=== PATIENT | female | born 1950 | race Caucasian/White ===

== ENCOUNTER → 2016-08-09 | Outpatient (CLI) | payer BC ==
[~2016-08-09] MED LIST: ACET-1256 PO; CETI10TA10 PO; CHOL20007 PO; DOXY-300 PO; DOXY100T17 PO; DXY100 PO; MULTTAB58 PO; SELE200T2 PO
== END | disposition home or self-care (01) ==
LOC: C.PAPS 16:21
PROVIDERS: ATTEND Obstetrics & Gynecology
DX: Z01.419 Encounter for gynecological examination (general) (routine) without abnormal findings (principal); R87.616 Satisfactory cervical smear but lacking transformation zone

== ENCOUNTER 2016-08-31 07:21 | Emergency (ER) | payer BC ==
[~2016-08-31] VITALS: Ht 167.6 cm; Wt 82.8 kg
[2016-08-31 07:30] VITALS: Ht 167.6 cm; Wt 82.8 kg
[2016-08-31] MEDS ORDERED: ACETAMINOPHEN IV 1,000 MG in EMPTY BAG 0 ML IV STA (07:53)
[2016-08-31] MEDS ORDERED: SODIUM CHLORIDE 0.9% 1000ML 1,000 ML IV STA ×2 (07:53→09:40)
[2016-08-31] MEDS ORDERED: ONDANSETRON INJ 2 MG/ML 2 ML VIAL IV STA (07:53)
--- NOTE | 2016-08-31 08:04 | EMERGENCY ROOM VISIT NOTE ---
History First contact with patient: 07:42 Chief Complaint: FEVER Stated Complaint: FEVER 100-102.5 X 5DAYS,STIFF NECK,SEVERE HEADACHE History of Present Illness The patient is a 65 year old female who presents to the Emergency Room with complaints of fever, neck stiffness and headache. The patient states that 4 days ago she began to develop neck stiffness on the left side of her neck. She states that on Sunday she developed a fever. Her temperature was as high as 102.5F yesterday. She took Tylenol yesterday. She had one episode of emesis today. She reports diffuse arthralgias and myalgias. She rates her discomfort a 5/10. The patient reports having a mosquito bite to the right side of her face a few weeks ago that became very swollen. The patient states that she has also been back and forth to a hospital in [place] as her just had a liver transplant. She denies any earache, sore throat, cough. She denies any pain in her chest or trouble breathing. She denies any abdominal pain or vomiting. She denies any urinary symptoms. She was seen at [facility] yesterday and they thought she may have a viral illness. Review of Systems A 10 system review of systems was completed with positives and pertinent negatives listed in the HPI. Past Medical/Surgical History Patient denies Social History Smoking Status: Never Smoker Housing Status: lives with family Current/Historical Medications Scheduled Cholecalciferol (Vitamin D3), 2,000 INTER.UNIT PO DAILY Doxycycline (Monohydrate) (Doxycycline Monohydrate), 100 MG PO BID Multiple Vitamin (Multivitamin), 1 TAB PO DAILY Selenium (Selenimin-200), 200 MCG PO DAILY Allergies Coded Allergies: Erythromycin (Unverified Allergy, Unknown, rash, 08/31/16) Physical Exam Vital Signs Date Time Temp Pulse Resp B/P (MAP) Pulse Ox O2 Delivery O2 Flow Rate FiO2 08/31/16 13:22 37.0 88 20 106/71 95 08/31/16 11:41 37.2 85 16 132/70 94 Room Air 08/31/16 10:15 37.7 85 20 148/84 94 Room Air 08/31/16 09:22 91 16 125/78 94 Room Air 08/31/16 08:44 39.4 94 22 148/83 93 Room Air 08/31/16 07:30 38.6 112 18 121/68 94 Room Air Physical Exam VITALS: Vitals are noted on the nurse's note and reviewed by myself. The patient is febrile with a temperature of 38.6C. GENERAL: This is a 65-year-old female, in no acute distress, nondiaphoretic, well-developed well-nourished. SKIN: The skin was warm without rashes, erythema, edema, or bruising. There is no tenting of the skin. Capillary reflex less than 2 seconds. HEAD: Normocephalic atraumatic. EARS: External auditory canals clear, tympanic membranes pearly raza without erythema or effusion bilaterally. EYES: Pupils equal round and reactive to light and accommodation. Conjunctivae without injection, sclerae without icterus. Extraocular movements intact. NOSE: Patent, turbinates without inflammation or discharge. No sinus tenderness. MOUTH: Mucous membranes moist. Tonsils are not enlarged. Pharynx without erythema or exudate. Uvula midline. Airway patent. Tongue does not deviate. NECK: There is pain with flexion and extension of the neck. There is tenderness to palpation of the left side of the neck. There is minimal rigidity on exam. No lymphadenopathy. No thyromegaly. Cervical spine is nontender. No JVD. HEART: Regular rate and rhythm without murmurs gallops or rubs. LUNGS: Clear to auscultation bilaterally without wheezes, rales or rhonchi. No retractions or accessory muscle use. ABDOMEN: Positive bowel sounds x 4. Soft, nontender, without masses or organomegaly. Pino sign negative. MUSCULOSKELETAL: No muscle atrophy, erythema, or edema noted. Full range of motion in all extremities.. Normal gait. Strength 5/5 throughout. NEURO: Patient was alert and oriented to person place and time. No focal neurological deficits. Medical Decision & Procedures ER Provider Diagnostic Interpretation: CHEST ONE VIEW PORTABLE CLINICAL HISTORY: fever STIFF NECK COMPARISON STUDY: No previous studies for comparison. FINDINGS: The cardiac and mediastinal contours are normal. There is no evidence of focal pulmonary consolidation. There is no evidence of failure. No pleural effusions are visualized.[ A small linear opacity at the left lung base is felt to be atelectatic. IMPRESSION: No active disease in the chest. [~ rep ct add3]] CT HEAD WITHOUT CONTRAST (CT) CLINICAL HISTORY: fever, neck pain, headache COMPARISON STUDY: No previous studies for comparison. TECHNIQUE: Axial CT of the brain is performed from the vertex to the skull base. IV contrast was not administered for this examination. CT DOSE: 537.48 mGy.cm FINDINGS: No intra or extra-axial mass lesions are visualized. There is no CT evidence of acute cortical infarction. There is no evidence of midline shift. There is no acute hemorrhage. No calvarial fractures are visualized. There is no evidence of pathologic ventricular dilatation. There is a tiny sphenoid sinus air-fluid level. IMPRESSION: Tiny sphenoid sinus air-fluid level. Otherwise unremarkable noncontrast head CT for age. Laboratory Results 08/31/16 08:00 Red Blood Count 5.20, Mean Corpuscular Volume 91.2, Mean Corpuscular Hemoglobin 30.6, Mean Corpuscular Hemoglobin Concent 33.5, Mean Platelet Volume 9.4, Neutrophils (%) (Auto) 85.1, Lymphocytes (%) (Auto) 9.2, Monocytes (%) (Auto) 5.1, Eosinophils (%) (Auto) 0.0, Basophils (%) (Auto) 0.3, Neutrophils # (Auto) 5.48, Lymphocytes # (Auto) 0.59, Monocytes # (Auto) 0.33, Eosinophils # (Auto) 0.00, Basophils # (Auto) 0.02 08/31/16 08:00 Test 08/31/16 08:00 08/31/16 08:09 08/31/16 09:18 White Blood Count 6.44 K/uL (4.8-10.8) Red Blood Count 5.20 M/uL (4.2-5.4) Hemoglobin 15.9 g/dL (12.0-16.0) Hematocrit 47.4 % (37-47) Mean Corpuscular Volume 91.2 fL (80-100) Mean Corpuscular Hemoglobin 30.6 pg (25-34) Mean Corpuscular Hemoglobin Concent 33.5 g/dl (32-36) Platelet Count 148 K/uL (130-400) Mean Platelet Volume 9.4 fL (7.4-10.4) Neutrophils (%) (Auto) 85.1 % Lymphocytes (%) (Auto) 9.2 % Monocytes (%) (Auto) 5.1 % Eosinophils (%) (Auto) 0.0 % Basophils (%) (Auto) 0.3 % Neutrophils # (Auto) 5.48 K/uL (1.4-6.5) Lymphocytes # (Auto) 0.59 K/uL (1.2-3.4) Monocytes # (Auto) 0.33 K/uL (0.11-0.59) Eosinophils # (Auto) 0.00 K/uL (0-0.5) Basophils # (Auto) 0.02 K/uL (0-0.2) RDW Standard Deviation 48.0 fL (36.4-46.3) RDW Coefficient of Variation 14.1 % (11.5-14.5) Immature Granulocyte % (Auto) 0.3 % Immature Granulocyte # (Auto) 0.02 K/uL (0.00-0.02) Prothrombin Time 11.6 SECONDS (9.0-12.0) Prothromb Time International Ratio 1.1 (0.9-1.1) Activated Partial Thromboplast Time 32.2 SECONDS (21.0-31.0) Partial Thromboplastin Ratio 1.2 Anion Gap 12.0 mmol/L (3-11) Est Creatinine Clear Calc Drug Dose 68.6 ml/min Estimated GFR () 77.8 Estimated GFR (Non- 67.1 BUN/Creatinine Ratio 9.8 (10-20) Calcium Level 8.8 mg/dl (8.5-10.1) Total Bilirubin 1.0 mg/dl (0.2-1) Aspartate Amino Transf (AST/SGOT) 46 U/L (15-37) Alanine Aminotransferase (ALT/SGPT) 52 U/L (12-78) Alkaline Phosphatase 102 U/L (45-117) Total Protein 7.6 gm/dl (6.4-8.2) Albumin 3.7 gm/dl (3.4-5.0) Globulin 3.9 gm/dl (2.5-4.0) Albumin/Globulin Ratio 0.9 (0.9-2) Lyme Disease IgG Antibody NEG (NEG) Bedside Lactic Acid Venous 1.18 mmol/L (0.90-1.70) CSF Color PINK CSF Appearance HAZY CSF WBC 3 /uL (0-5) CSF RBC 750 /uL (0) CSF Xanthrochromic NO XANTHOCHROMIA CSF Cell Count Tube # 1 CSF Chemistry Tube # 2 CSF Glucose 70 mg/dl (40-70) CSF Total Protein 45.0 mg/dl (15.0-45.0) Medications Administered Medications (Trade) Dose Ordered Sig/Aletha Route Start Time Stop Time Status Last Admin Dose Admin Sodium Chloride 1,000 ml @ 999 mls/hr Q1H1M STAT IV 08/31/16 07:53 08/31/16 08:53 DC 08/31/16 08:03 999 MLS/HR Ondansetron HCl (Zofran Inj) 4 mg NOW STAT IV 08/31/16 07:53 08/31/16 07:58 DC 08/31/16 08:16 4 MG Acetaminophen (Ofirmev Iv) 1,000 mg STK-MED ONCE IV 08/31/16 08:14 08/31/16 08:15 DC 08/31/16 08:22 1,000 MG Magnesium Sulfate (Magnesium Sulfate) 1 gm NOW STAT IV 08/31/16 09:40 08/31/16 09:41 DC 08/31/16 10:13 1 GM Sodium Chloride 1,000 ml @ 999 mls/hr Q1H1M STAT IV 08/31/16 09:40 08/31/16 10:40 DC 08/31/16 10:12 999 MLS/HR Ketorolac Tromethamine (Toradol Inj) 30 mg NOW STAT IV 08/31/16 10:34 08/31/16 10:35 DC 08/31/16 10:49 30 MG Ceftriaxone Sodium 2000 mg/ Dextrose 70 ml @ 140 mls/hr 1215 ONCE IV 08/31/16 12:15 08/31/16 12:44 DC 08/31/16 12:26 140 MLS/HR Procedure The patient was monitored on a parts expediter. They maintained a normal sinus rhythm without ectopy. A lumbar puncture was performed under the direct supervision of Dr. Carbajal. Risks, benefits and alternatives were discussed with the patient. She signed a consent to proceed with lumbar puncture. The patient was properly positioned and landmarks were identified. The patient's back was prepped in a sterile fashion. Anesthesia was obtained using 1% lidocaine. I did make one attempt but was unsuccessful. Dr. Carbajal was able to retry at a higher level with success. Estimated blood loss was less than 2 mL. A Band-Aid was placed. The patient tolerated the procedure well. ED Course The patient was seen and examined. Previous visits were reviewed. The patient was febrile. She did not have a leukocytosis or anemia. She does not have any significant electrolyte abnormality. Lactic acid was 1.18. AST was minimally elevated at 46. ALT was within normal limits. The patient does admit to drinking alcohol frequently. INR was 1.1. Serum Lyme titer IgM was positive. IgG was negative. Westergren block is pending. CSF cultures were negative for white blood cells, elevated glucose were elevated protein. Blood cultures, CSF for West Nile and CSF or Lyme disease are pending at this time. CT of the brain reveals a tiny sphenoid sinus air-fluid level but otherwise is unremarkable Chest x-ray does not reveal any obvious infiltrate The patient was hydrated with normal saline She was given 4 mg IV Zofran She was given 1 g IV Tylenol with improvement in her temperature She was given 1 g IV magnesium She was given 30 mg IV Toradol with improvement in her headache she was also given 2 g IV Rocephin The patient presents to the emergency department with headache, neck pain, neck stiffness, fever, arthralgias and myalgias. She reports a recent insect bite to the right side of her jaw which became very inflamed and itchy. Given the patient's presentation, a lumbar puncture was obtained as above. The lumbar puncture was negative for meningitis. 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 It is less likely that this truly represents neuro Lyme. She also has trace fluid in the sphenoid sinus. She will be started on doxycycline every 12 hours for 10 days to initiate treatment for Lyme disease while we wait for the Western blot and CSF Lyme disease. We will also be treating for potential sinusitis. The patient was advised to contact the emergency department in approximately 5-7 days to check on the results of the Western blot and if positive she will need an additional prescription for doxycycline. The patient should return to the emergency Department with any worsening symptoms. The patient was also seen and examined by Dr. Carbajal who agrees with the assessment and treatment plan. Medical Decision The differential diagnosis includes viral illness, meningitis, influenza, sinusitis, pneumonia, among others Impression Primary Impression: Fever Additional Impression: Headache Departure Information Dispostion Home / Self-Care Condition GOOD Prescriptions Doxycycline (Monohydrate) (DOXYCYCLINE MONOHYDRATE) 100 Mg Tab 100 MG PO BID for 10 Days, #20 CAP Prov: Hanna Godoy PA-C 08/31/16 Referrals Pro,Alexandr Loyola M.D. (PCP) Forms HOME CARE DOCUMENTATION FORM, IMPORTANT VISIT INFORMATION, Work Instructions Return To Work: 3 days Patient Instructions ED Fever Control, [facility] Additional Instructions Motrin 600mg every 6-8 hours Tylenol 1g every 4-6 hours; no more than 3 grams of tylenol in 24 hours Doxycycline every 12 hours for 10 days. Start tomorrow. You will need an additional 11-18 day course if the Lyme Western Blot comes back positive. You may contact the ED directly [phone] to check on the results. West Nile, Lyme CSF and blood cultures are still pending Return with any worsening symptoms Problem Qualifiers Primary Impression: Fever
[2016-08-31] MEDS ORDERED: ACETAMINOPHEN 1000 MG/100 ML IV IV ONE (08:14)
[2016-08-31 08:20] LABS: BASO % 0.3 %; BASO ABS # 0.02 K/uL (0-0.2); COMPLETE YES; HEMATOCRIT 47.4 % (37-47); IG% 0.3 %; LYMPH % 9.2 %; LYMPH ABS # 0.59 K/uL (1.2-3.4); MEAN CELL VOLUME 91.2 fL (80-100); MEAN CORPUSCULAR HEMOGLOBIN 30.6 pg (25-34); MEAN CORPUSCULAR HGB CONC 33.5 g/dl (32-36); MEAN PLATELET VOLUME 9.4 fL (7.4-10.4); MONO % 5.1 %; NEUT % 85.1 %; PLATELET COUNT 148 K/uL (130-400); WHITE BLOOD COUNT 6.44 K/uL (4.8-10.8)
[2016-08-31 08:28] LABS: INR 1.1 (0.9-1.1); PARTIAL THROMBOPLASTIN RATIO 1.2; PROTHROMBIN TIME (PATIENT) 11.6 SECONDS (9.0-12.0)
[2016-08-31 08:33] LABS: CALCIUM 8.8 mg/dl (8.5-10.1)
[2016-08-31 08:34] LABS: BUN/CREATININE RATIO 9.8 (10-20); CREATININE 0.91 mg/dl (0.60-1.20); POTASSIUM 3.8 mmol/L (3.5-5.1)
[2016-08-31 08:36] LABS: ALB/GLOB RATIO 0.9 (0.9-2)
--- NOTE | 2016-08-31 08:36 | DIAGNOSTIC IMAGING REPORT ---
CHEST ONE VIEW PORTABLE CLINICAL HISTORY: fever STIFF NECK COMPARISON STUDY: No previous studies for comparison. FINDINGS: The cardiac and mediastinal contours are normal. There is no evidence of focal pulmonary consolidation. There is no evidence of failure. No pleural effusions are visualized.[ A small linear opacity at the left lung base is felt to be atelectatic. IMPRESSION: No active disease in the chest. Electronically signed by: Gene Richter M.D. 08/31/2016 8:34 AM Dictated Date/Time: 08/31/2016 8:34 AM
--- NOTE | 2016-08-31 08:43 | DIAGNOSTIC IMAGING REPORT ---
CT HEAD WITHOUT CONTRAST (CT) CLINICAL HISTORY: fever, neck pain, headache COMPARISON STUDY: No previous studies for comparison. TECHNIQUE: Axial CT of the brain is performed from the vertex to the skull base. IV contrast was not administered for this examination. CT DOSE: 537.48 mGy.cm FINDINGS: No intra or extra-axial mass lesions are visualized. There is no CT evidence of acute cortical infarction. There is no evidence of midline shift. There is no acute hemorrhage. No calvarial fractures are visualized. There is no evidence of pathologic ventricular dilatation. There is a tiny sphenoid sinus air-fluid level. IMPRESSION: Tiny sphenoid sinus air-fluid level. Otherwise unremarkable noncontrast head CT for age. Electronically signed by: Gene Richter M.D. 08/31/2016 8:42 AM Dictated Date/Time: 08/31/2016 8:39 AM
[2016-08-31] MEDS ORDERED: MULTTAB58 PO ×2 (08:56)
[2016-08-31] MEDS ORDERED: SELE200T2 PO ×2 (08:56)
[2016-08-31] MEDS ORDERED: CHOL20007 PO ×2 (08:56)
[2016-08-31] MEDS ORDERED: LIDOCAINE HCL 1% 20 ML VIAL ONE (09:12)
[2016-08-31 09:16] LABS: LYME DISEASE AB IGG NEG (NEG)
[2016-08-31 09:18] LABS: LYME DISEASE AB IGM POS (NEG)
[2016-08-31] MEDS ORDERED: MAGNESIUM SULFATE 1GM / D5W 1 GM BAG IV STA (09:40)
[2016-08-31 10:00] LABS: CSF CHEMISTRY TUBE # 2
[2016-08-31] MEDS ORDERED: KETOROLAC TROMETHAMINE 30 MG/ML VIAL IV STA (10:34)
[2016-08-31 10:42] LABS: CSF APPEARANCE HAZY; CSF COLOR PINK; CSF XANTHOCHROMIC NO XANTHOCHROMIA
[2016-08-31] MEDS ORDERED: CEFTRIAXONE SOD INJ 1 GM ADDVIAL IV STA (11:52)
[2016-08-31] MEDS ORDERED: DOXY100T17 PO ×2 (12:03)
[2016-08-31] MEDS ORDERED: CEFTRIAXONE SOD INJ 2000 MG in DEXTROSE 5% 50ML IV ONE (12:15)
[2016-08-31 13:22] VITALS: BP 106/71; PULSE 88; TEMP 37; O2SAT 95
[2016-08-31] MEDS ORDERED: ACET-1256 PO ×2 (19:09)
[2016-09-02] MEDS ORDERED: DOXY-300 PO ×2 (09:55)
[2016-09-05 13:36] LABS: HSV TYPE 1 DNA Not Detected (Not Detected); HSV TYPE 1&2 DNA SOURCE Serum; HSV TYPE 2 DNA Not Detected (Not Detected); LYME DNA PCR CSF OR SYNOVIAL Not detected (Not Detected); LYME DNA SOURCE CSF
[2016-09-05 17:13] LABS: 18KDIGG BAND NONREACTIVE (NONREACTIVE); 23KDIGG BAND NONREACTIVE (NONREACTIVE); 23KDIGM BAND REACTIVE (NONREACTIVE); 28KDIGG BAND NONREACTIVE (NONREACTIVE); 30KDIGG BAND NONREACTIVE (NONREACTIVE); 39KDIGG BAND NONREACTIVE (NONREACTIVE); 39KDIGM BAND NONREACTIVE (NONREACTIVE); 41KDIGG BAND REACTIVE (NONREACTIVE); 41KDIGM BAND NONREACTIVE (NONREACTIVE); 45KDIGG BAND NONREACTIVE (NONREACTIVE); 58KDIGG BAND NONREACTIVE (NONREACTIVE); 66KDIGG BAND NONREACTIVE (NONREACTIVE); 93KDIGG BAND NONREACTIVE (NONREACTIVE)
[2016-12-28] MEDS ORDERED: CETI10TA10 PO (10:40)
== END 2016-08-31 13:23 | disposition home or self-care (01) ==
LOC: C.EDB 07:22
DX: R51 Headache (principal); R50.9 Fever, unspecified; Z79.899 Other long term (current) drug therapy; Z88.3 Allergy status to other anti-infective agents

== ENCOUNTER 2016-08-31 18:11 | Inpatient (IN) | payer BC ==
[~2016-08-31] VITALS: Ht 167.6 cm; Wt 90.0 kg
[~2016-08-31 18:11] MED LIST changes: -ACET-1256 PO; -CETI10TA10 PO; -DOXY-300 PO; -DXY100 PO
[2016-08-31] MEDS ORDERED: SODIUM CHLORIDE 0.9% 1000ML 2,000 ML IV STA (18:52)
[2016-08-31] MEDS ORDERED: KETOROLAC TROMETHAMINE 30 MG/ML VIAL IV STA (18:52)
[2016-08-31] MEDS ORDERED: DOXYCYCLINE IV 100 MG in DEXTROSE 5% 100ML 100 ML IV STA (18:58)
[2016-08-31] MEDS ORDERED: ACET-1256 PO ×2 (19:09)
[2016-08-31 19:34] LABS: BASO % 0.5 %; BASO ABS # 0.03 K/uL (0-0.2); COMPLETE YES; HEMATOCRIT 42.1 % (37-47); IG% 0.2 %; LYMPH % 6.8 %; LYMPH ABS # 0.42 K/uL (1.2-3.4); MEAN CELL VOLUME 90.7 fL (80-100); MEAN CORPUSCULAR HEMOGLOBIN 30.4 pg (25-34); MEAN CORPUSCULAR HGB CONC 33.5 g/dl (32-36); MEAN PLATELET VOLUME 9.4 fL (7.4-10.4); MONO % 4.8 %; NEUT % 87.7 %; PLATELET COUNT 127 K/uL (130-400); RED BLOOD COUNT 4.64 M/uL (4.2-5.4); WHITE BLOOD COUNT 6.21 K/uL (4.8-10.8)
--- NOTE | 2016-08-31 19:44 | EMERGENCY ROOM VISIT NOTE ---
History First contact with patient: 18:45 Chief Complaint: FEVER Stated Complaint: FEVER 103.9 History of Present Illness The patient is a 65 year old female who presents to the Emergency Room with complaints of fever/chills that have been ongoing for the past 5 days. She has had associated severe headaches and neck pain as well. Patient was seen in this emergency department this morning for her symptoms, had a significant workup including labs, urinalysis and urine culture, blood cultures, IV fluid bolus, IV antibiotics, head CT, chest x-ray, and lumbar puncture. She did have a presumptive positive Lyme antibody, which was the suspected cause of her symptoms. She was discharged home with a prescription for doxycycline, however the patient states she did not yet start taking this. Upon arrival home the patient began to have significant chills and spiked a fever to 103.9 with persistent severe headache and body aches. She has also noticed a slight cough since being discharged. This prompted the patient to return to the ER. She denies vision changes, chest pain, shortness of breath, palpitations, abdominal pain, vomiting, diarrhea, urinary symptoms, rash. Review of Systems GENERAL: + Fevers, chills, malaise, body aches. Denies unintentional weight changes. HEENT: Denies dizziness, visual problems, hearing loss, tinnitus. Denies difficulty swallowing or oral lesions. PULMONARY: + Cough. Denies shortness of breath, sputum production or hemoptysis. CARDIOVASCULAR: Denies chest pain, palpitations, dyspnea on exertion, orthopnea or peripheral edema. GASTROINTESTINAL: Denies diarrhea, constipation, nausea, vomiting, or abdominal pain. GENITOURINARY: Denies dysuria, frequency, urgency or nocturia. NEUROLOGIC: + Headache. Denies history of epilepsy, CVA, TIA or chronic headaches. MUSCULOSKELETAL: + Neck pain. Denies history of joint tenderness/swelling. SKIN: Denies rashes or lesions. PSYCHIATRIC: Denies history of depression or mental illness. ENDOCRINE: Denies history of diabetes. 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 Social History Smoking Status: Never Smoker Housing Status: lives with family Current/Historical Medications Scheduled Cholecalciferol (Vitamin D3), 2,000 INTER.UNIT PO DAILY Doxycycline (Monohydrate) (Doxycycline Monohydrate), 100 MG PO BID Multiple Vitamin (Multivitamin), 1 TAB PO DAILY Selenium (Selenimin-200), 200 MCG PO DAILY Scheduled PRN Acetaminophen (Tylenol), 1,000 MG PO UD PRN for Pain or Fever Allergies Coded Allergies: Erythromycin (Unverified Allergy, Unknown, rash, 08/31/16) Physical Exam Vital Signs Date Time Temp Pulse Resp B/P (MAP) Pulse Ox O2 Delivery O2 Flow Rate FiO2 09/01/16 01:06 82 14 113/63 96 08/31/16 23:24 100 16 147/74 99 Nasal Cannula 2.0 08/31/16 22:04 37.4 08/31/16 22:02 92 22 132/71 97 08/31/16 21:41 89 25 98 08/31/16 20:41 88 18 96 08/31/16 20:35 95 08/31/16 20:23 96 Nasal Cannula 2.0 08/31/16 19:33 98 20 123/65 95 08/31/16 19:32 123/65 08/31/16 18:12 38.9 106 19 143/72 92 Room Air Physical Exam CONSTITUTIONAL: No acute distress. Mildly dehydrated. Skin is hot to touch. Nontoxic appearing. Alert and oriented X 4 with normal affect. HEENT: Normocephalic, atraumatic. Pupils equal, round and reactive to light, EOMI. TMs normal. Pharynx normal. Dry mucous membranes. NECK: Supple, full active range of motion without discomfort. Tenderness to the left lateral neck with palpation, no palpable cervical adenopathy. RESPIRATORY: Clear to auscultation bilaterally with no wheezing, crackles, rhonchi or stridor. Equal expansion bilaterally. CARDIOVASCULAR: Regular rate and rhythm with no murmurs, rubs or gallops. Normal peripheral perfusion. No edema. GASTROINTESTINAL: Soft, nontender, nondistended. Bowel sounds present in all quadrants. MUSCULOSKELETAL: Full range of motion of all joints without discomfort. INTEGUMENTARY: No rash or other significant dermatologic conditions noted. NEUROLOGIC: Cranial nerves II-XII grossly intact. No focal neurologic deficits noted. Normal strength, normal sensation, normal coordination, normal gait. Medical Decision & Procedures Laboratory Results 08/31/16 19:15 Red Blood Count 4.64, Mean Corpuscular Volume 90.7, Mean Corpuscular Hemoglobin 30.4, Mean Corpuscular Hemoglobin Concent 33.5, Mean Platelet Volume 9.4, Neutrophils (%) (Auto) 87.7, Lymphocytes (%) (Auto) 6.8, Monocytes (%) (Auto) 4.8, Eosinophils (%) (Auto) 0.0, Basophils (%) (Auto) 0.5, Neutrophils # (Auto) 5.45, Lymphocytes # (Auto) 0.42, Monocytes # (Auto) 0.30, Eosinophils # (Auto) 0.00, Basophils # (Auto) 0.03 08/31/16 19:15 Test 08/31/16 00:00 08/31/16 19:15 08/31/16 19:18 08/31/16 21:20 Influenza Type A Antigen Neg for Influ A (NEG) Influenza Type B Antigen Neg for Influ B (NEG) White Blood Count 6.21 K/uL (4.8-10.8) Red Blood Count 4.64 M/uL (4.2-5.4) Hemoglobin 14.1 g/dL (12.0-16.0) Hematocrit 42.1 % (37-47) Mean Corpuscular Volume 90.7 fL (80-100) Mean Corpuscular Hemoglobin 30.4 pg (25-34) Mean Corpuscular Hemoglobin Concent 33.5 g/dl (32-36) Platelet Count 127 K/uL (130-400) Mean Platelet Volume 9.4 fL (7.4-10.4) Neutrophils (%) (Auto) 87.7 % Lymphocytes (%) (Auto) 6.8 % Monocytes (%) (Auto) 4.8 % Eosinophils (%) (Auto) 0.0 % Basophils (%) (Auto) 0.5 % Neutrophils # (Auto) 5.45 K/uL (1.4-6.5) Lymphocytes # (Auto) 0.42 K/uL (1.2-3.4) Monocytes # (Auto) 0.30 K/uL (0.11-0.59) Eosinophils # (Auto) 0.00 K/uL (0-0.5) Basophils # (Auto) 0.03 K/uL (0-0.2) RDW Standard Deviation 48.6 fL (36.4-46.3) RDW Coefficient of Variation 14.5 % (11.5-14.5) Immature Granulocyte % (Auto) 0.2 % Immature Granulocyte # (Auto) 0.01 K/uL (0.00-0.02) Anion Gap 9.0 mmol/L (3-11) Est Creatinine Clear Calc Drug Dose 80.4 ml/min Estimated GFR () 90.9 Estimated GFR (Non- 78.5 BUN/Creatinine Ratio 14.1 (10-20) Lactic Acid Level 0.8 mmol/L (0.4-2.0) Calcium Level 8.0 mg/dl (8.5-10.1) Total Bilirubin 1.1 mg/dl (0.2-1) Direct Bilirubin 0.6 mg/dl (0-0.2) Aspartate Amino Transf (AST/SGOT) 111 U/L (15-37) Alanine Aminotransferase (ALT/SGPT) 96 U/L (12-78) Alkaline Phosphatase 143 U/L (45-117) Total Protein 6.7 gm/dl (6.4-8.2) Albumin 3.3 gm/dl (3.4-5.0) Urine Color DK YELLOW Urine Appearance CLEAR (CLEAR) Urine pH 6.5 (4.5-7.5) Urine Specific [place] 1.014 (1.000-1.030) Urine Protein NEG (NEG) Urine Glucose (UA) NEG (NEG) Urine Ketones 1+ (NEG) Urine Occult Blood NEG (NEG) Urine Nitrite NEG (NEG) Urine Bilirubin NEG (NEG) Urine Urobilinogen POS (NEG) Urine Leukocyte Esterase NEG (NEG) Medications Administered Medications (Trade) Dose Ordered Sig/Aletha Route Start Time Stop Time Status Last Admin Dose Admin Sodium Chloride 2,000 ml @ 999 mls/hr Q2H1M STAT IV 08/31/16 18:52 08/31/16 20:52 DC 08/31/16 19:32 999 MLS/HR Ketorolac Tromethamine (Toradol Inj) 15 mg NOW STAT IV 08/31/16 18:52 08/31/16 18:56 DC 08/31/16 19:32 15 MG Doxycycline Hyclate 100 mg/ Dextrose 110 ml @ 50 mls/hr NOW STAT IV 08/31/16 18:58 08/31/16 21:09 DC 08/31/16 19:32 50 MLS/HR Butalbital/ Aspirin/Caffeine (Fiorinal Tab/ CAP) 1 tab Q4H PRN PO 08/31/16 22:45 09/30/16 22:44 08/31/16 23:23 1 TAB Ceftriaxone Sodium 2000 mg/ Dextrose 70 ml @ 100 mls/hr NOW STAT IV 08/31/16 23:26 09/01/16 00:07 DC 09/01/16 00:12 100 MLS/HR ECG Indication: weakness Rate (beats per minute): 92 Rhythm: normal sinus Findings: no acute ischemic change, no ectopy Medical Decision CC: Patient presenting with complaint of fever/chills and headache, body aches Interpretation of Labs: No leukocytosis, no anemia, no significant electrolyte abnormalities, normal renal function. Acute elevation of liver enzymes when compared to labs drawn earlier today. Of note, patient also had positive Lyme antibodies drawn today, confirmation pending. Blood cultures and urine cultures also sent today. Influenza A/B negative. Differential Diagnosis: Includes, but not limited to acute Lyme disease, Lyme meningitis, influenza, UTI, dehydration, bacteremia/sepsis Medication Reconciliation: I attest that I have personally reviewed the patient' s current medication list. Vital signs review: I reviewed the patient's vital signs and interpret them as follows: T: Febrile; BP: normotensive; HR: Tachycardic; RR: WNL; Pulse Ox: WNL on RA. Blood pressure screening: The patient was found to have normal blood pressure on screening and does not require follow-up for repeat blood pressure check. Summary: Patient was evaluated at bedside, history of physical exam performed. Patient is alert and oriented and in no acute distress, she is noted to be febrile and tachycardic on vital signs, but is nontoxic appearing. Mildly dehydrated. Neurologic exam is intact with no focal deficits. No nuchal rigidity. She has left-sided neck tenderness to palpation. Review of earlier ED visit today reveals normal head CT, normal chest x-ray, CSF testing that is negative for bacterial meningitis, some CSF specimen still pending. She did have positive Lyme antibodies results today. Orders were placed at bedside for repeat labs and UA, IV fluid bolus, IV doxycycline to evaluate for worsening infection and treat for possible Lyme. Patient discussed with Dr. Holden, who agrees with my assessment and plan. Labs reviewed as above, concerning for acute elevation in LFTs that is changed from earlier today. Patient continues to mount high fevers in spite of multiple doses of antipyretics. Given the patient's poor progress and severe headaches with recurrent high fevers, concern for Lyme meningitis. Patient discussed with Dr. Mcdowell, hospitalist, for admission. He agrees to admission and recommends starting patient on additional IV ceftriaxone and IV steroids. Patient reassessed multiple times throughout ED stay, she remains alert and oriented and generally well-appearing/nontoxic. She is persistently febrile, but tachycardia is improved. Headache is also somewhat improved after medications and also persistent. Patient and family updated on all results and plan for admission, and they are agreeable to admission. Patient stable at time of admission. 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 (PCP) Patient Instructions My [facility] Problem Qualifiers Primary Impression: Fever Fever type: unspecified Qualified Codes: R50.9 - Fever, unspecified
[2016-08-31 19:55] LABS: BUN/CREATININE RATIO 14.1 (10-20); CREATININE 0.8 mg/dl (0.60-1.20); POTASSIUM 3.9 mmol/L (3.5-5.1)
[2016-08-31 21:51] LABS: URINE APPEARANCE CLEAR (CLEAR); URINE COLOR DK YELLOW; URINE NITRITE NEG (NEG); URINE PH 6.5 (4.5-7.5); URINE SPECIFIC GRAVITY 1.014 (1.000-1.030); UROBILINOGEN POS (NEG); ZZUR CULT IF INDIC CLEAN CATCH NO
[2016-08-31 22:01] LABS: MANUAL MICROSCOPIC REQUIRED? NO; REVIEW REQ? NO; URINE BILIRUBIN NEG (NEG)
[2016-08-31] MEDS ORDERED: BUTALBITAL/ASA/CAFFEINE 1 EA TAB/CAP PO PRN (22:45)
[2016-08-31] MEDS ORDERED: CEFTRIAXONE SOD INJ 2,000 MG in DEXTROSE 5% 50ML 50 ML IV SCH (23:15)
[2016-08-31] MEDS ORDERED: CEFTRIAXONE SOD INJ 2,000 MG in DEXTROSE 5% 50ML 50 ML IV STA (23:26)
[2016-09-01] VITALS (10 sets, daily range): BP systolic 115–148; BP diastolic 65–97; PULSE 60–84; TEMP 36.6–37.8; O2SAT 92–97; Ht 167.6 cm; Wt 90.0 kg
[2016-09-01] MEDS ORDERED: MoRPHine SULFATE 4 MG/ML 1 ML CARP\\VIAL IV PRN (00:45)
[2016-09-01] MEDS ORDERED: MoRPHine SULFATE 2 MG/ML CARP IV PRN (00:45)
[2016-09-01] MEDS ORDERED: ONDANSETRON INJ 2 MG/ML 2 ML VIAL IV PRN (00:45)
[2016-09-01] MEDS ORDERED: DEXAMETHASONE SOD INJ 10 MG/ML VIAL IV STA (01:15)
[2016-09-01] MEDS ORDERED: DEXAMETHASONE INJ 10 MG in SYRINGE 0 ML IV STA (01:44)
[2016-09-01] MEDS ORDERED: NSS + 20MEQ KCL 1000ML 1,000 ML IV SCH (02:00)
--- NOTE | 2016-09-01 06:35 | DIAGNOSTIC IMAGING REPORT ---
ABDOMINAL ULTRASOUND, RIGHT UPPER QUADRANT HISTORY: Pain elevated LFTs, fevers, eval cholecystitis. COMPARISON: None. FINDINGS: Pancreas: The pancreas demonstrates a normal echotexture. Liver: Unremarkable. Gallbladder: No gallbladder wall thickening. No gallstones. CBD: 5 mm Right kidney: No hydronephrosis. IMPRESSION: No significant abnormality identified within the within the right upper quadrant. Electronically signed by: Willy Cardoza M.D. 09/01/2016 6:34 AM Dictated Date/Time: 09/01/2016 6:32 AM
--- NOTE | 2016-09-01 07:20 | History and Physical ---
History & Physical Date & Time of Service: Sep 01, 2016 at 07:09. The patient was examined on 08/31/2016. 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 History of Present Illness Source: patient The patient is a 65-year-old female presents emergency department with fevers, chills, severe headaches and neck pain over the past 5 days. She was seen in the emergency department earlier in the morning, had an extensive workup at that time including a positive Lyme IgM test. She'll be given ceftriaxone IV and sent home on doxycycline orally, which she has not filled yet today. Her temperature worsens to 103.9F, was prompted her return to the emergency department tonight for reassessment. She has not had any recent travel, and is not aware of any sick exposures. Social History Smoking Status: Never Smoker Smokeless Tobacco Use: No Alcohol Use: none Drug Use: none Housing status: lives with family Multi-Drug Resistant Organisms History of MDRO: No Allergies Coded Allergies: Erythromycin (Unverified Allergy, Unknown, rash, 08/31/16) Home Medications Scheduled Cholecalciferol (Vitamin D3), 2,000 INTER.UNIT PO DAILY Doxycycline (Monohydrate) (Doxycycline Monohydrate), 100 MG PO BID Multiple Vitamin (Multivitamin), 1 TAB PO DAILY Selenium (Selenimin-200), 200 MCG PO DAILY Scheduled PRN Acetaminophen (Tylenol), 1,000 MG PO UD PRN for Pain or Fever Review of Systems The patient denies chest pain, palpitations, shortness of breath, cough, lower extremity swelling, vision change, hearing change, sore throat, nausea, vomiting , abdominal pain, pelvic pain, blood in urine or stool, dysuria, urinary frequency or urgency, memory loss, rash, abnormal bruising or bleeding, imbalance, focal weakness, numbness or tingling in arms or legs. The review of systems is otherwise negative other than for that already noted above, and at least 10 systems have been reviewed. Physical Exam Vital Signs Date Time Temp Pulse Resp B/P (MAP) Pulse Ox O2 Delivery O2 Flow Rate FiO2 09/01/16 06:17 37.6 09/01/16 04:07 37.8 82 18 128/74 (92) 92 Room Air 09/01/16 04:00 Room Air 09/01/16 01:30 37.8 84 15 126/76 93 Room Air 09/01/16 01:06 82 14 113/63 96 08/31/16 23:24 100 16 147/74 99 Nasal Cannula 2.0 08/31/16 22:04 37.4 08/31/16 22:02 92 22 132/71 97 08/31/16 21:41 89 25 98 08/31/16 20:41 88 18 96 08/31/16 20:35 95 08/31/16 20:23 96 Nasal Cannula 2.0 08/31/16 19:33 98 20 123/65 95 08/31/16 19:32 123/65 08/31/16 18:12 38.9 106 19 143/72 92 Room Air The patient is awake, well-developed and adequately nourished, alert and oriented 3, normocephalic and atraumatic, lying in bed and in mild to moderate distress secondary to headache pain HEENT--PERRL, EOMI, mucous membranes and oropharynx dry. Neck--supple, no JVD or bruits, thyroid normal, trachea midline, no adenopathy. Heart--normal S1 and S2, no extra beats, no murmurs, rubs or gallops. Lungs--clear bilaterally with good air movement, no respiratory distress, no accessory muscle use. Abdomen--normal bowel sounds and soft, nontender and nondistended, no hernias or masses, no organomegaly. Extremities--no cyanosis, clubbing or edema. There are good distal pulses b/l. Dermatologic--normal skin turgor, normal color, warm and dry, no abnormal lymph nodes, no rash. Neurologic--cranial nerves II through XII grossly intact, motor and sensory examination normal. Rheumatologic--normal range of motion. Psychiatric--normal affect. Diagnostics Laboratory Results Results Past 24 Hours Test 08/31/16 19:15 08/31/16 19:18 08/31/16 21:20 09/01/16 05:20 Range/Units White Blood Count 6.21 4.8-10.8 K/uL Red Blood Count 4.64 4.2-5.4 M/uL Hemoglobin 14.1 12.0-16.0 g/dL Hematocrit 42.1 37-47 % Mean Corpuscular Volume 90.7 80-100 fL Mean Corpuscular Hemoglobin 30.4 25-34 pg Mean Corpuscular Hemoglobin Concent 33.5 32-36 g/dl Platelet Count 127 130-400 K/uL Mean Platelet Volume 9.4 7.4-10.4 fL Neutrophils (%) (Auto) 87.7 % Lymphocytes (%) (Auto) 6.8 % Monocytes (%) (Auto) 4.8 % Eosinophils (%) (Auto) 0.0 % Basophils (%) (Auto) 0.5 % Neutrophils # (Auto) 5.45 1.4-6.5 K/uL Lymphocytes # (Auto) 0.42 1.2-3.4 K/uL Monocytes # (Auto) 0.30 0.11-0.59 K/uL Eosinophils # (Auto) 0.00 0-0.5 K/uL Basophils # (Auto) 0.03 0-0.2 K/uL RDW Standard Deviation 48.6 36.4-46.3 fL RDW Coefficient of Variation 14.5 11.5-14.5 % Immature Granulocyte % (Auto) 0.2 % Immature Granulocyte # (Auto) 0.01 0.00-0.02 K/uL Sodium Level 137 136-145 mmol/L Potassium Level 3.9 3.5-5.1 mmol/L Chloride Level 103 98-107 mmol/L Carbon Dioxide Level 25 21-32 mmol/L Anion Gap 9.0 3-11 mmol/L Blood Urea Nitrogen 11 7-18 mg/dl Creatinine 0.80 0.60-1.20 mg/dl Est Creatinine Clear Calc Drug Dose 80.4 ml/min Estimated GFR () 90.9 Estimated GFR (Non- 78.5 BUN/Creatinine Ratio 14.1 10-20 Random Glucose 120 70-99 mg/dl Lactic Acid Level 0.8 0.4-2.0 mmol/L Calcium Level 8.0 8.5-10.1 mg/dl Total Bilirubin 1.1 0.2-1 mg/dl Direct Bilirubin 0.6 0-0.2 mg/dl Aspartate Amino Transf (AST/SGOT) 111 15-37 U/L Alanine Aminotransferase (ALT/SGPT) 96 12-78 U/L Alkaline Phosphatase 143 45-117 U/L Total Protein 6.7 6.4-8.2 gm/dl Albumin 3.3 3.4-5.0 gm/dl Urine Color DK YELLOW Urine Appearance CLEAR CLEAR Urine pH 6.5 4.5-7.5 Urine Specific [place] 1.014 1.000-1.030 Urine Protein NEG NEG Urine Glucose (UA) NEG NEG Urine Ketones 1+ NEG Urine Occult Blood NEG NEG Urine Nitrite NEG NEG Urine Bilirubin NEG NEG Urine Urobilinogen POS NEG Urine Leukocyte Esterase NEG NEG Diagnostic Radiology Patient Name: LILY CASTREJON Unit Number: [id number] Dictated: 09/01/16631 Transcribed: 09/01/16631 MS Printed Date/Time: [~ rep prt dt]/[~ rep prt tm] [~ rep ct labl] - [~ rep ct ivnm] [facility] Radiology Department [place] [id number] Dictated: 09/01/16631 Transcribed: 09/01/16631 MS Printed Date/Time: [~ rep prt dt]/[~ rep prt tm] [~ rep ct labl] - [~ rep ct ivnm] ABDOMINAL ULTRASOUND, RIGHT UPPER QUADRANT HISTORY: Pain elevated LFTs, fevers, eval cholecystitis. COMPARISON: None. FINDINGS: Pancreas: The pancreas demonstrates a normal echotexture. Liver: Unremarkable. Gallbladder: No gallbladder wall thickening. No gallstones. CBD: 5 mm Right kidney: No hydronephrosis. IMPRESSION: No significant abnormality identified within the within the right upper quadrant. Electronically signed by: Willy Cardoza M.D. 09/01/2016 6:34 AM Dictated Date/Time: 09/01/2016 6:32 AM The status of this report is Signed. Draft = Not yet reviewed or approved by Radiologist. Signed = Reviewed and approved by Radiologist. <AttendingPhy>Saulo Mcdowell M.D.</AttendingPhy> <FamilyPhy>Alexandr Barnett M.D.</FamilyPhy> <PrimaryPhy>Alexandr Barnett M.D.</PrimaryPhy> <UnitNumber> [id number]</UnitNumber> <VisitNumber>[id number]</VisitNumber> <PatientName> LILY CASTREJON</PatientName> <DateOfBirth>1950</DateOfBirth> < Location>[facility]</Location> <ServiceDate>08/31/16</ServiceDate> <MNE>ESINDI</MNE> < OrderingPhy>Claudia Lara</OrderingPhy> <OrderingPhyMNE>f rep ord dr wyatt </OrderingPhyMNE> <DictatingPhyMNE>f rep dict dr wyatt</DictatingPhyMNE> < CCListMNE>f rep ct mne</CCListMNE> <AdmittingPhyMNE>f pt admit dr wyatt</ AdmittingPhyMNE> <AttendingPhyMNE>f pt attend dr wyatt</AttendingPhyMNE> <ConsultingPhyMNE>f pt consult dr wyatt</ConsultingPhyMNE> <FamilyPhyMNE>f pt fam dr wyatt</FamilyPhyMNE> <OtherPhyMNE>f pt other dr wyatt</OtherPhyMNE> < PrimaryPhyMNE>f pt prim care dr wyatt</PrimaryPhyMNE> <ReferringPhyMNE>f pt referring dr wyatt</ReferringPhyMNE> Patient Name: LILY CASTREJON Unit Number: [id number] Dictated: 08/31/16833 Transcribed: 08/31/16833 ARG Printed Date/Time: [~ rep prt dt]/[~ rep prt tm] [~ rep ct labl] - [~ rep ct ivnm] [facility] [place] [place] [address] Dictated: 08/31/16833 Transcribed: 08/31/16833 ARG Printed Date/Time: [~ rep prt dt]/[~ rep prt tm] [~ rep ct labl] - [~ rep ct ivnm] [~ rep ct add3]] CHEST ONE VIEW PORTABLE CLINICAL HISTORY: fever STIFF NECK COMPARISON STUDY: No previous studies for comparison. FINDINGS: The cardiac and mediastinal contours are normal. There is no evidence of focal pulmonary consolidation. There is no evidence of failure. No pleural effusions are visualized.[ A small linear opacity at the left lung base is felt to be atelectatic. IMPRESSION: No active disease in the chest. Electronically signed by: Gene Richter M.D. 08/31/2016 8:34 AM Dictated Date/Time: 08/31/2016 8:34 AM The status of this report is Signed. Draft = Not yet reviewed or approved by Radiologist. Signed = Reviewed and approved by Radiologist. <AttendingPhy></AttendingPhy> <FamilyPhy>Alexandr Barnett M.D.</FamilyPhy> < PrimaryPhy>Alexandr Barnett M.D.</PrimaryPhy> <UnitNumber>[id number]</UnitNumber > <VisitNumber>[id number]</VisitNumber> <PatientName>LILY CASTREJON</ PatientName> <DateOfBirth>1950</DateOfBirth> <Location>C[facility]</Location> < ServiceDate>08/31/16</ServiceDate> <MNE>ESINDI</MNE> <OrderingPhy>Hanna Godoy PA-C</OrderingPhy> <OrderingPhyMNE>f rep ord dr wyatt</OrderingPhyMNE > <DictatingPhyMNE>f rep dict dr wyatt</DictatingPhyMNE> <CCListMNE>f rep ct mne</ CCListMNE> <AdmittingPhyMNE>f pt admit dr wyatt</AdmittingPhyMNE> <AttendingPhyMNE >f pt attend dr wyatt</AttendingPhyMNE> <ConsultingPhyMNE>f pt consult dr wyatt</ConsultingPhyMNE> <FamilyPhyMNE>f pt fam dr wyatt</FamilyPhyMNE> <OtherPhyMNE>f pt other dr wyatt</OtherPhyMNE> < PrimaryPhyMNE>f pt prim care dr wyatt</PrimaryPhyMNE> <ReferringPhyMNE>f pt referring dr wyatt</ReferringPhyMNE> Patient Name: LILY CASTREJON Unit Number: [id number] Dictated: 08/31/16838 Transcribed: 08/31/16839 ARG Printed Date/Time: [~ rep prt dt]/[~ rep prt tm] [~ rep ct labl] - [~ rep ct ivnm] [facility] Radiology Department [place] [address] Dictated: 08/31/16 08 Transcribed: 08/31/16 0840 ARG Printed Date/Time: [~ rep prt dt]/[~ rep prt tm] [~ rep ct labl] - [~ rep ct ivnm] [~ rep ct add3]] CT HEAD WITHOUT CONTRAST (CT) CLINICAL HISTORY: fever, neck pain, headache COMPARISON STUDY: No previous studies for comparison. TECHNIQUE: Axial CT of the brain is performed from the vertex to the skull base. IV contrast was not administered for this examination. CT DOSE: 537.48 mGy.cm FINDINGS: No intra or extra-axial mass lesions are visualized. There is no CT evidence of acute cortical infarction. There is no evidence of midline shift. There is no acute hemorrhage. No calvarial fractures are visualized. There is no evidence of pathologic ventricular dilatation. There is a tiny sphenoid sinus air-fluid level. IMPRESSION: Tiny sphenoid sinus air-fluid level. Otherwise unremarkable noncontrast head CT for age. Electronically signed by: Gene Richter M.D. 08/31/2016 8:42 AM Dictated Date/Time: 08/31/2016 8:39 AM The status of this report is Signed. Draft = Not yet reviewed or approved by Radiologist. Signed = Reviewed and approved by Radiologist. <AttendingPhy></AttendingPhy> <FamilyPhy>Alexandr Barnett M.D.</FamilyPhy> < PrimaryPhy>Alexandr Barnett M.D.</PrimaryPhy> <UnitNumber>[id number]</UnitNumber > <VisitNumber>[id number]</VisitNumber> <PatientName>LILY CASTREJON</ PatientName> <DateOfBirth>1950</DateOfBirth> <Location>[facility]</Location> < ServiceDate>08/31/16</ServiceDate> <MNE>ESINDI</MNE> <OrderingPhy>Hanna Godoy PA-C</OrderingPhy> <OrderingPhyMNE>f rep ord dr wyatt</OrderingPhyMNE > <DictatingPhyMNE>f rep dict dr wyatt</DictatingPhyMNE> <CCListMNE>f rep ct yoselin</ CCListMNE> <AdmittingPhyMNE>f pt admit dr wyatt</AdmittingPhyMNE> <AttendingPhyMNE >f pt attend dr wyatt</AttendingPhyMNE> <ConsultingPhyMNE>f pt consult dr wyatt</ConsultingPhyMNE> <FamilyPhyMNE>f pt fam dr wyatt</FamilyPhyMNE> <OtherPhyMNE>f pt other dr wyatt</OtherPhyMNE> < PrimaryPhyMNE>f pt prim care dr wyatt</PrimaryPhyMNE> <ReferringPhyMNE>f pt referring dr wyatt</ReferringPhyMNE> Impression Assessment and Plan Central nervous system Lyme disease--the patient has severe headaches, generalized myalgias or arthralgias, fatigue with a positive Lyme IgM antibody. She was initially given doxycycline IV by the emergency department staff. She 'll be placed on ceftriaxone 2 g IV daily, which was started by me in the emergency department, along with Decadron 10 mg IV in the ED, and continuing with Decadron 4 mg IV every 6 hours. Morphine sulfate 2-4 mg IV to 2 hours when necessary severe headache and NSS with KCl 20 mEq at 100 mils per hour. We 'll order an MRI the brain combination. Abnormal liver enzymes--she had a normal ultrasound of right upper quadrant while in the ED tonight. We will order follow-up liver tests in the a.m. Level of Care Telemetry Advanced Directives Existing Advance Directive: No Existing Living Will: No Existing Power of Guide Delegate: No Resuscitation Status FULL RESUSCITATION VTE Prophylaxis VTE Risk Assessment Done? Y/N: Yes Risk Level: Moderate Given or contraindicated: SCD's Social Service Consult None Apply
--- NOTE | 2016-09-01 07:24 | Family Medicine Progress Note ---
Progress Note Date of Service Sep 01, 2016. Subjective Pt evaluation today including: conversation w/ patient, physical exam, chart review, lab review The patient was seen and examined at bedside. Pt states to be feeling much better this morning. Fever has gone away. Patient is resting comfortably in bed. Denies having any pain. Eating and urinating well. ROS: No chest pain, no SOB, no headache, no photophobia, no neck stiffness. Plan of care was described to the patient and all questions were answered. Objective Physical Exam General Appearance: WD/WN, no apparent distress Respiratory/Chest: chest non-tender, lungs clear, normal breath sounds, no respiratory distress, no accessory muscle use Cardiovascular: regular rate, rhythm, no edema, no gallop, no JVD, no murmur Abdomen: normal bowel sounds, non tender, soft, no organomegaly, no pulsatile mass Extremities: normal range of motion, non-tender, normal inspection, no pedal edema, no calf tenderness Neurologic/Psychiatric: alert, normal mood/affect, oriented x 3 Assessment and Plan 65F with no significant PMHX p/w fevers x 5 days + new onset cough. Recently seen in the ED, Lyme IGM was positive, given prescription for doxy which she reportedly didn't pick up man yet and return to the ER when her fever spiked to 103F. New increased LFTs. RUQ US showed no stones and was unremarkable. MRI was grossly normal. 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 Started on Ceftriaxone and Steroids. Pt improved clinically, likely typical Lyme vs Anaplasmosis. Fevers, Headache, Neck Stiffness 2/2 Lyme and/or Anaplasmosis - Pt denies tick bite, [place] - Switch Ceftriaxone to Doxycycline tonight. - Stopping the steroids. - Pt counselled extensively on etiology of symptoms and unlikeliness of developing sequelae from Lyme - Discharge on 100mg Doxycycline BID. Dehydration (clinical appearance) - s/p KCL @ 100mls/hr - DC IVF, will monitor PO intake which is good. DVT Proph - Hep SQ BID Dispo: If pt doesn't go home, will DC to med surg. Full Code Resident Physician Supervision Note: I interviewed and examined the patient. Discussed with Dr. Clinton and agree with findings and plan as documented in the note. Any exceptions or clarifications are listed here: None Documented By: Mikel Hankins feeling MUCH better but afraid to go home due to how bad she felt. no new complaints. charts/labs reviwed. 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 (+) lyme screen obviously fits for lyme unless crossover "false positive' from anaplasmosis. that said both respond well to treatment of choice w doxy - change to this. 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
[2016-09-01] MEDS ORDERED: DEXAMETHASONE INJ 4 MG in SYRINGE 0 ML IV SCH (08:00)
[2016-09-01 08:33] LABS: CREATININE 0.6 mg/dl (0.60-1.20)
[2016-09-01 08:36] LABS: ALB/GLOB RATIO 0.7 (0.9-2)
[2016-09-01 09:00] LABS: CALCIUM 8.1 mg/dl (8.5-10.1)
[2016-09-01] MEDS ORDERED: SELENIUM 200 MCG PO SCH (09:00)
[2016-09-01] MEDS ORDERED: GADAVIST IV PRN (10:00)
[2016-09-01] MEDS: CHOLECALCIFEROL 1000 INTER.UNIT TAB PO SCH (10:51)
[2016-09-01] MEDS: MULTIVITAMIN TAB PO SCH (10:51)
--- NOTE | 2016-09-01 13:10 | DIAGNOSTIC IMAGING REPORT ---
MRI OF THE BRAIN WITHOUT AND WITH IV CONTRAST CLINICAL HISTORY: Headache. Line disease, fever, body aches. COMPARISON STUDY: Noncontrast head CT dated 08/31/2016 TECHNIQUE: MRI of the brain was performed from the vertex to the skull base utilizing various T1 and T2 weighted sequences. Following the IV administration of 9 mL of Gadavist contrast, additional enhanced images were obtained. FINDINGS: Sagittal T1, axial diffusion, proton density and T2 weighted axial, coronal FLAIR, and pre and post axial T1-weighted images were acquired. These were supplemented with post gadolinium coronal T1 weighted images. No intra or extra-axial mass lesions are visualized. Axial diffusion-weighted images reveal no evidence of acute or subacute infarction. There is no evidence of ventricular dilatation. Proton density T2-weighted and FLAIR images reveal scattered foci of increased T2 signal within the white matter, likely on a small vessel basis. There are no abnormal flow voids. There is no evidence of pathologic enhancement. There is a small sphenoid sinus air-fluid level. There are moderate degenerative changes within the visualized portions of the upper cervical spine. IMPRESSION: 1. No acute intracranial findings 2. No evidence of intracranial mass 3. No evidence of acute or subacute infarction 4. Minimal foci of increased T2 signal within the white matter, a finding not unexpected for age 5. Small sphenoid sinus air-fluid level 6. Degenerative changes in the cervical spine Electronically signed by: Gene Richter M.D. 09/01/2016 1:09 PM Dictated Date/Time: 09/01/2016 1:06 PM
[2016-09-01] MEDS: DOXYCYCLINE HYCLATE 100 MG CAP PO SCH (18:42)
[2016-09-01] MEDS: HEPARIN SOD 5000 UNIT/0.5 ML CARP SQ SCH (21:00)
[2016-09-01] MEDS ORDERED: NURSING VERBAL MED ORDER ONE (23:30)
[2016-09-01] MEDS ORDERED: ZOLPIDEM TARTRATE 5 MG TAB PO PRN (23:45)
[2016-09-02] MEDS ORDERED: CEFTRIAXONE SOD INJ 2,000 MG in DEXTROSE 5% 50ML 50 ML IV SCH ×2
[2016-09-02] MEDS: DOXYCYCLINE HYCLATE 100 MG CAP PO SCH ×3 (05:17→09:00)
[2016-09-02 07:06] LABS: BASO % 0.4 %; BASO ABS # 0.03 K/uL (0-0.2); COMPLETE YES; EOS % 0.1 %; HEMATOCRIT 37.9 % (37-47); IG% 0.3 %; LYMPH % 21.9 %; LYMPH ABS # 1.52 K/uL (1.2-3.4); MEAN CELL VOLUME 90.2 fL (80-100); MEAN CORPUSCULAR HGB CONC 32.2 g/dl (32-36); MEAN PLATELET VOLUME 10.1 fL (7.4-10.4); MONO % 10.4 %; NEUT % 66.9 %; PLATELET COUNT 162 K/uL (130-400); WHITE BLOOD COUNT 6.93 K/uL (4.8-10.8)
[2016-09-02 07:41] LABS: BUN/CREATININE RATIO 23.7 (10-20); CREATININE 0.5 mg/dl (0.60-1.20); POTASSIUM 3.7 mmol/L (3.5-5.1)
[2016-09-02 07:46] VITALS: BP 132/72; PULSE 70; TEMP 36.8; O2SAT 94
[2016-09-02] MEDS: MULTIVITAMIN TAB PO SCH (08:25)
[2016-09-02] MEDS: CHOLECALCIFEROL 1000 INTER.UNIT TAB PO SCH (08:25)
[2016-09-02] MEDS: HEPARIN SOD 5000 UNIT/0.5 ML CARP SQ SCH (08:26)
--- NOTE | 2016-09-02 08:53 | Discharge Summary ---
Discharge Summary Date of Service Sep 02, 2016. (Hemanth Abel MD) Discharge Summary Admission Date: Sep 01, 2016 at 00:43 Discharge Date: Sep 02, 2016 Discharge Disposition: Home Principal Diagnosis: Lyme disease (Hemanth Abel MD) Discharge Disposition: Home (Mikel Hankins D.O.) Discharge Exam Patient with no acute events overnight She is feeling much better and would like to go home today She still has some residual neck stiffness, but denies any photophobia, nausea or vomiting Review of Systems: Constitutional: No fever, No chills, No sweats Respiratory: No cough, No shortness of breath Cardiovascular: No chest pain, No edema Abdomen: No pain, No nausea, No vomiting Musculoskeletal: + joint pain (chronic), No muscle pain Integumentary: No rash, No itch Physical Exam: General Appearance: WD/WN, no apparent distress Eyes: normal inspection, sclerae normal, funduscopic exam normal ENT: hearing grossly normal, pharynx normal Neck: supple, no JVD, no carotid bruits, trachea midline Respiratory/Chest: lungs clear, no respiratory distress, no accessory muscle use Cardiovascular: regular rate, rhythm, no edema, no murmur, normal peripheral pulses Abdomen / GI: normal bowel sounds, non tender, soft Extremities: no calf tenderness, no pedal edema, normal range of motion Neurologic/Psychiatric: alert, normal mood/affect, oriented x 3 Skin: normal color, warm/dry, no rash (Hemanth Abel MD) Hospital Course The patient is a 65-year-old female presented to the emergency department with fevers, chills, severe headaches and neck pain for 5 day duration. She was seen in the emergency department earlier in the morning, had an extensive workup at that time including a positive Lyme IgM test. She was sent home with doxycycline orally. Her temperature worsened in the afternoon at home to 103.9F, which prompted her return to the emergency department for reassessment. Workup in the ED showed new increased LFTs and platelets of 127. She was admitted to the hospital and had a RUQ US which was unremarkable and showed no stones. She also had an MRI of her head which was normal. She was started on ceftriaxone and steroids in the hospital for coverage of anaplasmosis as well as lyme disease. She markedly improved on these medications. The day before discharge she was switched over the doxycycline orally. She was discharged with a prescription of doxycycline with follow up with her PCP. She will need follow up of her anaplasmosis labs as an outpatient Total Time Spent: Less than 30 minutes This includes examination of the patient, discharge planning, medication reconciliation, and communication with other providers. (Hemanth Abel MD) Resident Physician Supervision Note: I interviewed and examined the patient. Discussed with Dr. Abel and agree with findings and plan as documented in the note. Any exceptions or clarifications are listed here: None Documented By: Mikel Hankins feeling better wants to go home ROS otherwise negative except for as above vitals noted nad no pallor or icterus breathing unlabored tick borne illness - clinical picture fits w most likely lyme + concomitant anaplasmosis vs just anaplasmosis w false positive lyme caused by anaplasmosis. doxy x 14 days. explained sun protection. thrombocytopenia resolved, f/u LFTs ~2-3wks -- all likely related to anaplasmosis, however. stable for home Total Time Spent: Less than 30 minutes (Mikel Hankins, D.O.) Discharge Instructions Please refer to the electronic Patient Visit Report (Discharge Instructions) for additional information. (Hemanth Abel MD) Additional Copies To Alexandr Barnett M.D.
[2016-09-02] MEDS ORDERED: DXY100 PO ×2 (08:55)
--- NOTE | 2016-09-02 08:57 | Discharge Instructions ---
Discharge Instructions Date of Service Sep 02, 2016. 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 Instructions / Follow-Up Instructions / Follow-Up You were diagnosed with lyme disease while you were in the hospital We will be sending you home with a prescription for doxycycline If you have any worsening muscles aches, fevers, headaches, neck stiffness or nause/vomiting then please come back to the emergency department Current Hospital Diet Patient's current hospital diet: Regular Diet Discharge Diet Recommended Diet: Regular Diet Pending Studies Studies pending at discharge: no Medical Emergencies . Who to Call and When: Medical Emergencies: If at any time you feel your situation is an emergency, please call 911 immediately. . Non-Emergent Contact Non-Emergency issues call your: Primary Care Provider . . "Provider Documentation" section prepared by Hemanth Abel. . VTE Core Measure Inpt VTE Proph given/why not?: SCD's
[2016-09-02 09:19] VITALS: O2SAT 94
[2016-09-02] MEDS ORDERED: DOXY-300 PO ×2 (09:55)
[2016-09-02 09:56] VITALS: BP 132/72; PULSE 70; TEMP 36.8; O2SAT 94
[2016-09-02] MEDS ORDERED: ACETAMINOPHEN 500 MG TAB PO ONE ×2 (11:00→11:30)
[2016-09-02] MEDS ORDERED: NURSING VERBAL MED ORDER ONE (11:00)
[2016-09-06 15:44] LABS: EHRLICHIA CHAFF IGG AB <1:64 (<1:64); EHRLICHIA CHAFF IGM AB <1:20 (<1:20)
[2016-12-28] MEDS ORDERED: CETI10TA10 PO (10:40)
== END 2016-09-02 11:21 | disposition home or self-care (01) | DRG 869 ==
LOC: C.EDB 18:12 → C.2T 09-01 00:43 → ENRESERV 09-01 00:48 → C.MS2W 09-01 19:49
PROVIDERS: ADMIT Hospitalist; ATTEND Family Medicine
DX: A69.20 Lyme disease, unspecified (principal); E86.0 Dehydration; R94.5 Abnormal results of liver function studies; A77.49 Other ehrlichiosis; Z79.899 Other long term (current) drug therapy; R51 Headache; R50.9 Fever, unspecified; Z88.3 Allergy status to other anti-infective agents

== ENCOUNTER → 2016-09-15 | Outpatient (CLI) | payer BC ==
[~2016-09-15] MED LIST changes: +ACET-1256 PO; +CETI10TA10 PO; +DOXY-300 PO
[2016-09-15 21:24] LABS: BASO % 1.2 %; BASO ABS # 0.07 K/uL (0-0.2); COMPLETE YES; EOS % 3.1 %; HEMATOCRIT 41.8 % (37-47); IG% 0.2 %; LYMPH % 39.9 %; LYMPH ABS # 2.42 K/uL (1.2-3.4); MEAN CELL VOLUME 92.1 fL (80-100); MEAN CORPUSCULAR HEMOGLOBIN 29.3 pg (25-34); MEAN CORPUSCULAR HGB CONC 31.8 g/dl (32-36); MEAN PLATELET VOLUME 9.9 fL (7.4-10.4); MONO % 8.9 %; NEUT % 46.7 %; PLATELET COUNT 366 K/uL (130-400); RED BLOOD COUNT 4.54 M/uL (4.2-5.4); WHITE BLOOD COUNT 6.07 K/uL (4.8-10.8)
[2016-09-15 21:48] LABS: ALB/GLOB RATIO 1.2 (0.9-2); ALKALINE PHOSPHATASE 94 U/L (45-117); ALT/SGPT 32 U/L (12-78); AST/SGOT 18 U/L (15-37); BLOOD UREA NITROGEN 22 mg/dl (7-18); BUN/CREATININE RATIO 27.7 (10-20); CALCIUM 9.1 mg/dl (8.5-10.1); CARBON DIOXIDE 27 mmol/L (21-32); CHLORIDE 103 mmol/L (98-107); CREATININE 0.78 mg/dl (0.60-1.20); GLUCOSE 71 mg/dl (70-99); SODIUM 138 mmol/L (136-145)
== END | disposition home or self-care (01) ==
LOC: C.LAB 18:45
PROVIDERS: ATTEND Physician Assistant
DX: A69.20 Lyme disease, unspecified (principal)